=== PATIENT | male | born 1940 | race Caucasian/White ===

== ENCOUNTER 2016-08-21 15:21 | Emergency (ER) | payer MEDICARE, BC ==
[~2016-08-21] VITALS: Ht 170.2 cm; Wt 108.9 kg
[~2016-08-21 15:21] MED LIST: AMLO10TA82 PO; BSC10SU PR; CHLO50TA2 PO; CLCX200C PO; DCS100C PO; DIPH25TA82 PO; FOSI40TA PO; GLUC1VIA IM; HYDR-34 PO; INSU100I14 SQ; LANS30CA PO; MAGN800O PO; OMEP20CA6 PO; ONDN4T PO; OXC20TCR PO; RIVA10TA PO; TRM50T PO
[2016-08-21] MEDS ORDERED: AMLO10TA2 PO (15:43)
[2016-08-21] MEDS ORDERED: MONOPRIL PO (15:43)
[2016-08-21] MEDS ORDERED: TORS20TA3 PO (15:43)
--- NOTE | 2016-08-21 16:18 | Diagnostic Imaging Report ---
INDICATION: Right knee pain and swelling. DISCUSSION: Three views of the right knee were obtained, no comparison. There is a constrained longstem femoral and tibial component total right knee arthroplasty present. There is significant heterotopic bone formation noted about the right knee. There is no definite hardware loosening identified. There is diffuse circumferential soft tissue swelling present. Effusion is likely present. No acute fracture or dislocation. IMPRESSION: 1. Diffuse soft tissue swelling of the right knee. Chronic changes of the right knee are also noted as discussed above. No acute abnormality is otherwise identified. Dictated by: Dictated on workstation # [id number]
--- NOTE | 2016-08-21 16:19 | Diagnostic Imaging Report ---
INDICATION: Right knee pain. DISCUSSION: Four views of the right femur were obtained, no comparison. Constrained longstem total right knee arthroplasty is present. There is significant heterotopic bone formation noted about the knee prosthesis. Chronic deformity of the remaining distal femoral shaft is present. No acute fracture or dislocation is otherwise identified. Diffuse soft tissue swelling is noted involving the distal thigh and right knee. No radiopaque foreign body or soft tissue gas identified. IMPRESSION: 1. Significant soft tissue swelling about the right knee. Chronic changes of the distal right femur as described. Dictated by: Dictated on workstation # [id number]
--- NOTE | 2016-08-21 16:27 | Diagnostic Imaging Report ---
INDICATION: Right knee pain. DISCUSSION: Four views of the right tibia and fibula were obtained, no comparison. There is a constrained long-stem total right knee arthroplasty present. Chronic deformity of the proximal right tibia and fibula is noted. Marked soft tissue swelling is noted about the right knee. Extensive heterotopic bone formation is present. Chronic appearing nondisplaced fracture of the medial malleolus. Ankle mortise is symmetric. No unexpected radiopaque foreign body. Mild degenerative changes are noted within the tibiotalar joint. IMPRESSION: 1. Significant right knee soft tissue swelling of uncertain etiology. No acute osseous abnormality identified. Chronic changes as discussed above. Dictated by: Dictated on workstation # [id number]
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
[2016-08-21 17:02] LABS: BASOPHILS % (AUTO) 0 % (0-10); EOSINOPHILS % (AUTO) 0 % (0-10); LYMPHOCYTES # (AUTO) 0.6 X 10^3 (1.0-4.0); LYMPHOCYTES % (AUTO) 8 % (12-44); MEAN CORPUSCULAR HEMOGLOBIN 29 PG (25-34); MEAN CORPUSCULAR HGB CONC 34 G/DL (32-36); MEAN CORPUSCULAR VOLUME 87 FL (80-99); MEAN PLATELET VOLUME 10.6 FL (7.4-10.4); MONOCYTES # (AUTO) 0.9 X 10^3 (0.0-1.0); MONOCYTES % (AUTO) 12 % (0-12); NEUTROPHILS # (AUTO) 6.2 X 10^3 (1.8-7.8); NEUTROPHILS % (AUTO) 81 % (42-75); PLATELET COUNT 171 10^3/uL (130-400); RED BLOOD COUNT 3.63 10^6/uL (4.35-5.85); RED CELL DISTRIBUTION WIDTH 15.8 % (10.0-14.5); WHITE BLOOD COUNT 7.7 10^3/uL (4.3-11.0)
[2016-08-21 17:10] LABS: BILIRUBIN,URINE NEGATIVE (NEGATIVE); KETONES,URINE NEGATIVE (NEGATIVE); LEUKOCYTE ESTERASE ,URINE 1+ (NEGATIVE); NITRITE,URINE NEGATIVE (NEGATIVE); PH,URINE 5 (5-9); PROTEIN,URINE 3+ (NEGATIVE); UROBILINOGEN,URINE NORMAL (NORMAL)
[2016-08-21 17:18] LABS: BAND NEUTROPHILS 2 %; BASOPHILS % (MANUAL) 0 %; EOSINOPHILS % (MANUAL) 0 %; LYMPHOCYTES % (MANUAL) 17 %; NEUTROPHILS % (MANUAL) 78 %
[2016-08-21 17:29] LABS: ERYTHROCYTE SEDIMENTATION RATE > 140 MM/HR (0-30)
[2016-08-21 17:30] LABS: ALBUMIN 2.8 G/DL (3.2-4.5); BILIRUBIN,TOTAL 0.8 MG/DL (0.1-1.0); CALCIUM 8.5 MG/DL (8.5-10.1); CREATININE SERUM 4.5 MG/DL (0.60-1.30); POTASSIUM 2.8 MMOL/L (3.6-5.0); TOTAL PROTEIN 6.5 G/DL (6.4-8.2)
[2016-08-21 17:32] LABS: hs C REACTIVE PROTEIN 25.27 MG/DL (0.00-0.50)
[2016-08-21] MEDS ORDERED: NS IV 1000 ML 1,000 ML IV ONE (17:51)
[2016-08-21] MEDS ORDERED: LEVOFLOXACIN 500 MG TAB (LEVAQUIN) PO STA (18:15)
[2016-08-21] MEDS ORDERED: KCL 10 MEQ TAB (MICRO K) PO STA (18:15)
[2016-08-21] MEDS ORDERED: LEVO250T11 PO (19:00)
[2016-08-21 20:21] VITALS: BP 135/78
== END 2016-08-21 20:21 | disposition home or self-care (01) ==
LOC: EDUNIT# 15:21 → ER 15:24
DX: N17.9 Acute kidney failure, unspecified (principal); R31.9 Hematuria, unspecified; M79.661 Pain in right lower leg; I97.89 Other postprocedural complications and disorders of the circulatory system, not elsewhere classified; I48.2 Chronic atrial fibrillation; I10 Essential (primary) hypertension; Z96.651 Presence of right artificial knee joint; Z96.652 Presence of left artificial knee joint
CPT/HCPCS: 36415; 73552; 73562; 73590; 80053; 81000; 83605; 85007; 85027; 85652; 86141; 87088; 96360